=== PATIENT | female | born 1960 | race Caucasian/White ===

== ENCOUNTER → 2016-09-10 | Outpatient (CLI) | payer BC ==
[~2016-09-10] MED LIST: BUPR100T8 PO; CLTP PO; FSM70 PO; GLUCOSAMINE; MOME50SP5; PANT40TA PO; RIZA10TA18 PO; SNG10 PO; SYN125 PO; TOPI100T20 PO
--- NOTE | 2016-09-10 12:48 | MAMMOGRAPHY REPORT ---
BILATERAL DIGITAL SCREENING MAMMOGRAM TOMOSYNTHESIS WITH CAD: 09/10/2016 CLINICAL HISTORY: Routine screening. Patient has no complaints. TECHNIQUE: Breast tomosynthesis in addition to standard 2D mammography was performed. Current study was also evaluated with a Computer Aided Detection (CAD) system. COMPARISON: Comparison is made to exams dated: 08/29/2015 mammogram, 08/23/2014 mammogram, 08/22/2013 ma mmogram, 08/19/2012 mammogram, 08/19/2011 mammogram, and 08/18/2010 mammogram - [facility] nt. BREAST COMPOSITION: The tissue of both breasts is heterogeneously dense, which may obscure small ma sses. FINDINGS: No suspicious masses, calcifications, or areas of architectural distortion are noted in e ither breast. There has been no significant interval change compared to prior exams. IMPRESSION: ACR BI-RADS CATEGORY 1: NEGATIVE There is no mammographic evidence of malignancy. A 1 year screening mammogram is recommended. The p atient will receive written notification of the results. Approximately 10% of breast cancers are not detected with mammography. A negative mammographic repor t should not delay biopsy if a clinically suggestive mass is present. Geovanna Verde M.D. /:09/10/2016 11:09:13 It Security Administrator: Bri Felton, [facility] letter sent: Normal 1/2 BI-RADS Code: ACR BI-RADS Category 1: Negative
== END | disposition home or self-care (01) ==
LOC: C.MAMM 09:55
PROVIDERS: ATTEND Obstetrics & Gynecology
DX: Z12.31 Encounter for screening mammogram for malignant neoplasm of breast (principal)

== ENCOUNTER 2017-05-31 21:22 | Emergency (ER) | payer BC ==
[~2017-05-31] VITALS: Ht 160 cm; Wt 73.1 kg
[2017-05-31 21:24] VITALS: Ht 160 cm; Wt 73.1 kg
[2017-05-31 21:50] VITALS: O2SAT 100
--- NOTE | 2017-05-31 21:50 | EMERGENCY ROOM VISIT NOTE ---
History Report prepared by Carlene: Nguyễn Brown Under the Supervision of: Dr. Blaine Munoz D.O. First contact with patient: 21:30 Chief Complaint: CONFUSION Stated Complaint: CONFUSION, DOUBLE VISION, DISORIENTATION History of Present Illness The patient is a 57 year old female who presents to the Emergency Room with an episode of confusion that occurred prior to arrival tonight. Per the patient's significant other, the patient was watching TV in bed, and mentioned that she was having double vision. The patient then stood up, and lost her balance backward and had some slurred speech, with some decreased fine motor skills. The patient notes that she took Ambien around an hour and a half ago. She adds that she currently feels a bit tired. She denies any headaches, fevers, chills, chest pain, abdominal pain, or recent notable illnesses. She states that she does not drink alcohol. The patient is not on any blood thinners. 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 Denies recent notable illnesses. Review of Systems See HPI for pertinent positives & negatives. A total of 10 systems reviewed and were otherwise negative. Past Medical & Surgical Medical Problems: (1) Gastritis (2) Thyroid disease No chronic problems Family History Cancer Diabetes mellitus Heart disease Hypertension Social History Smoking Status: Never Smoker Smokeless Tobacco Use: No Alcohol Use: none Marital Status: Housing Status: lives with family Occupation Status: employed Current/Historical Medications Scheduled Calcium W/ Vitamin D (Calcium/Vitamin D), 2 TABS PO BID Desloratadine (Clarinex), 5 MG PO DAILY Famotidine (Pepcid), 20 MG PO BID Indomethacin (Indocin), 50 MG PO BID Levothyroxine Sodium (Synthroid), 62.5 MG PO DAILY Mometasone Furoate (Nasal) (Mometasone Furoate), 2 SPRAYS TREE DAILY Montelukast Sodium (Singulair), 10 MG PO HS Verapamil Hcl (Verapamil Hcl Er), 120 MG PO DAILY Zolpidem Tartrate (Zolpidem Tartrate), 10 MG PO HS Scheduled PRN Nxptoryhhs-Rflmfhnmooulr-Jxauk (Esgic 325/50/40MG), 1 CAP PO UD PRN for Migraine Sumatriptan Succinate (Imitrex), 100 MG PO UD PRN for Migraine Allergies Coded Allergies: No Known Allergies (Verified , 05/20/12) Physical Exam Vital Signs Date Time Temp Pulse Resp B/P (MAP) Pulse Ox O2 Delivery O2 Flow Rate FiO2 05/31/17 23:08 36.5 71 16 123/81 100 05/31/17 21:59 67 05/31/17 21:50 100 Room Air 05/31/17 21:41 100 Room Air 05/31/17 21:24 36.5 65 16 127/89 100 Room Air Physical Exam GENERAL: Patient is awake, alert, and in no acute distress. Patient is resting comfortably and showing no signs of anxiety EYES: Bilateral conjunctival injection noted. Pupils were equal round and reactive. EOMI. Horizontal nystagmus in both directions. EARS, NOSE, MOUTH AND THROAT: The nose is without any evidence of any deformity. Mucous membranes are moist tongue is midline NECK: The neck is nontender and supple. RESPIRATORY: Normal respiratory effort is noted there is no evidence of wheezing rhonchi or rales CARDIOVASCULAR: Regular rate and rhythm noted there no murmurs rubs or gallops normal S1 normal S2 GASTROINTESTINAL: The abdomen is soft. Bowel sounds are present in all quadrants. Abdomen is nontender MUSCULOSKELETAL/EXTREMITIES: There is no evidence of gross deformity full range of motion is noted in the hips and shoulders SKIN: There is no obvious evidence of any rash. There are no petechiae, pallor or cyanosis noted. NEUROLOGIC: Patient is awake alert and oriented x3 strength is symmetric patellar reflexes are 2+ bilaterally Medical Decision & Procedures ER Provider Diagnostic Interpretation: Radiology results as stated below per my review and radiologist interpretation: CT SCAN OF THE BRAIN WITHOUT IV CONTRAST CLINICAL HISTORY: Change in mental status. Weakness. COMPARISON STUDY: MRI of the brain dated 05/09/2015. TECHNIQUE: Unenhanced axial CT scan of the brain is performed from the vertex to the skull base. A dose lowering technique was utilized adhering to the principles of ALARA. CT DOSE: 537.48 mGy.cm FINDINGS: Brain parenchyma: The brain parenchyma is normal in appearance. There is no hemorrhage, mass effect, or evidence of acute territorial ischemia by CT criteria. Yost-white matter is preserved. No extra-axial fluid collection is seen. Ventricles, sulci, cisterns: Normal in configuration. Intracranial vasculature: The visualized intracranial vasculature at the skull base is normal in appearance. Calvarium: Unremarkable. Sinuses and mastoids: The visualized paranasal sinuses are clear. The mastoid air cells are well pneumatized. Orbits: The bony orbits are grossly intact. IMPRESSION: There is no hemorrhage, mass effect, or evidence of acute territorial ischemia by CT criteria. Electronically signed by: Carlos Liang M.D. 05/31/2017 10:13 PM Dictated Date/Time: 05/31/2017 10:11 PM SINGLE VIEW CHEST CLINICAL HISTORY: Weakness. Change in mental status. FINDINGS: An AP, portable, upright chest radiograph is compared to study dated 10/09/2009. The heart is top normal for projection. The mediastinal contour is within normal limits. The lungs and pleural spaces are clear. No pneumothorax is seen. The bony thorax is grossly intact. IMPRESSION: No acute cardiopulmonary abnormality. Electronically signed by: Carlos Liang M.D. 05/31/2017 10:16 PM Dictated Date/Time: 05/31/2017 10:15 PM Laboratory Results 05/31/17 21:45 Red Blood Count 4.51, Mean Corpuscular Volume 93.8, Mean Corpuscular Hemoglobin 31.7, Mean Corpuscular Hemoglobin Concent 33.8, Mean Platelet Volume 9.7, Neutrophils (%) (Auto) 44.0, Lymphocytes (%) (Auto) 42.1, Monocytes (%) (Auto) 9.6, Eosinophils (%) (Auto) 3.0, Basophils (%) (Auto) 1.2, Neutrophils # (Auto) 2.93, Lymphocytes # (Auto) 2.81, Monocytes # (Auto) 0.64, Eosinophils # (Auto) 0.20, Basophils # (Auto) 0.08 05/31/17 21:45 Test 05/31/17 21:37 05/31/17 21:45 05/31/17 22:25 Bedside Glucose 83 mg/dl (70-90) White Blood Count 6.67 K/uL (4.8-10.8) Red Blood Count 4.51 M/uL (4.2-5.4) Hemoglobin 14.3 g/dL (12.0-16.0) Hematocrit 42.3 % (37-47) Mean Corpuscular Volume 93.8 fL (80-100) Mean Corpuscular Hemoglobin 31.7 pg (25-34) Mean Corpuscular Hemoglobin Concent 33.8 g/dl (32-36) Platelet Count 197 K/uL (130-400) Mean Platelet Volume 9.7 fL (7.4-10.4) Neutrophils (%) (Auto) 44.0 % Lymphocytes (%) (Auto) 42.1 % Monocytes (%) (Auto) 9.6 % Eosinophils (%) (Auto) 3.0 % Basophils (%) (Auto) 1.2 % Neutrophils # (Auto) 2.93 K/uL (1.4-6.5) Lymphocytes # (Auto) 2.81 K/uL (1.2-3.4) Monocytes # (Auto) 0.64 K/uL (0.11-0.59) Eosinophils # (Auto) 0.20 K/uL (0-0.5) Basophils # (Auto) 0.08 K/uL (0-0.2) RDW Standard Deviation 43.3 fL (36.4-46.3) RDW Coefficient of Variation 12.7 % (11.5-14.5) Immature Granulocyte % (Auto) 0.1 % Immature Granulocyte # (Auto) 0.01 K/uL (0.00-0.02) Prothrombin Time 10.7 SECONDS (9.0-12.0) Prothromb Time International Ratio 1.0 (0.9-1.1) Activated Partial Thromboplast Time 24.5 SECONDS (21.0-31.0) Partial Thromboplastin Ratio 0.9 Anion Gap 6.0 mmol/L (3-11) Est Creatinine Clear Calc Drug Dose 70.0 ml/min Estimated GFR () 86.9 Estimated GFR (Non- 75.0 BUN/Creatinine Ratio 20.2 (10-20) Calcium Level 9.3 mg/dl (8.5-10.1) Magnesium Level 2.3 mg/dl (1.8-2.4) Total Bilirubin 0.3 mg/dl (0.2-1) Direct Bilirubin < 0.1 mg/dl (0-0.2) Aspartate Amino Transf (AST/SGOT) 13 U/L (15-37) Alanine Aminotransferase (ALT/SGPT) 22 U/L (12-78) Alkaline Phosphatase 49 U/L (45-117) Troponin I < 0.015 ng/ml (0-0.045) Total Protein 7.8 gm/dl (6.4-8.2) Albumin 4.3 gm/dl (3.4-5.0) Thyroid Stimulating Hormone (TSH) 1.790 uIu/ml (0.300-4.500) Urine Color YELLOW Urine Appearance CLEAR (CLEAR) Urine pH 5.5 (4.5-7.5) Urine Specific [place] 1.012 (1.000-1.030) Urine Protein NEG (NEG) Urine Glucose (UA) NEG (NEG) Urine Ketones NEG (NEG) Urine Occult Blood TRACE (NEG) Urine Nitrite NEG (NEG) Urine Bilirubin NEG (NEG) Urine Urobilinogen NEG (NEG) Urine Leukocyte Esterase NEG (NEG) Urine WBC (Auto) 0 /hpf (0-5) Urine RBC (Auto) 0-4 /hpf (0-4) Urine Hyaline Casts (Auto) 0 /lpf (0-5) Urine Epithelial Cells (Auto) 0-5 /lpf (0-5) Urine Bacteria (Auto) NEG (NEG) Laboratory results per my review. ECG Indication: altered mental status Rate (beats per minute): 63 Rhythm: normal sinus Findings: no ectopy, other (no acute ST segment abnormalities) Change: no significant change (from 05/11/12) ED Course 2133: The patient was evaluated in room B4B. A complete history and physical examination were performed. Medical Decision Differential diagnosis: Etiologies such as toxicologic, infection, hypoglycemia, electrolyte abnormalities, cardiac sources, intracerebral event, neurologic, as well as others were entertained. Nursing notes reviewed. The patient is a 57-year-old female who presented to the emergency department for an evaluation of altered mental status. The patient took her Ambien and then a half hour later started noticing difficulty with her vision and was unsteady on her feet. Her significant other was concerned and felt that this could be related to a stroke. I discussed the patient's laboratory and radiographic studies with her and her significant other. At this time I feel this is most likely secondary to the medication that she took prior to the onset of the symptoms. They were encouraged to follow-up with primary care physician as soon as possible. They were also encouraged to return to the emergency apartment immediately if symptoms do not improve in the predicted fashion or if need arises. Medication Reconcilliation Current Medication List: was personally reviewed by me Blood Pressure Screening Patient's blood pressure: Normal blood pressure Impression Primary Impression: Altered mental status Additional Impression: Medication reaction Scribe Attestation The scribe's documentation has been prepared under my direction and personally reviewed by me in its entirety. I confirm that the note above accurately reflects all work, treatment, procedures, and medical decision making performed by me. Departure Information Dispostion Home / Self-Care Referrals Letty Vázquez PA-C (PCP) Patient Instructions My [facility] Problem Qualifiers Primary Impression: Altered mental status Altered mental status type: unspecified Qualified Codes: R41.82 - Altered mental status, unspecified Additional Impression: Medication reaction Encounter type: initial encounter Qualified Codes: T88.7XXA - Unspecified adverse effect of drug or medicament, initial encounter
[2017-05-31] MEDS ORDERED: MOME6000 NAE (22:07)
[2017-05-31] MEDS ORDERED: CALC600T24 PO (22:07)
[2017-05-31] MEDS ORDERED: MONT1TAB3 PO (22:07)
[2017-05-31] MEDS ORDERED: LEVO125T72 PO (22:07)
[2017-05-31] MEDS ORDERED: SUMA100T16 PO (22:08)
[2017-05-31] MEDS ORDERED: ZOLP10TA6 PO (22:08)
[2017-05-31] MEDS ORDERED: FAMO20TA11 PO (22:08)
[2017-05-31] MEDS ORDERED: CLR/5 PO (22:08)
[2017-05-31] MEDS ORDERED: BUTACAP10 PO (22:08)
[2017-05-31] MEDS ORDERED: VERA120C2 PO (22:08)
[2017-05-31] MEDS ORDERED: INDO-24 PO (22:08)
--- NOTE | 2017-05-31 22:14 | DIAGNOSTIC IMAGING REPORT ---
CT SCAN OF THE BRAIN WITHOUT IV CONTRAST CLINICAL HISTORY: Change in mental status. Weakness. COMPARISON STUDY: MRI of the brain dated 05/09/2015. TECHNIQUE: Unenhanced axial CT scan of the brain is performed from the vertex to the skull base. A dose lowering technique was utilized adhering to the principles of ALARA. CT DOSE: 537.48 mGy.cm FINDINGS: Brain parenchyma: The brain parenchyma is normal in appearance. There is no hemorrhage, mass effect, or evidence of acute territorial ischemia by CT criteria. Yost-white matter is preserved. No extra-axial fluid collection is seen. Ventricles, sulci, cisterns: Normal in configuration. Intracranial vasculature: The visualized intracranial vasculature at the skull base is normal in appearance. Calvarium: Unremarkable. Sinuses and mastoids: The visualized paranasal sinuses are clear. The mastoid air cells are well pneumatized. Orbits: The bony orbits are grossly intact. IMPRESSION: There is no hemorrhage, mass effect, or evidence of acute territorial ischemia by CT criteria. Electronically signed by: Carlos Liang M.D. 05/31/2017 10:13 PM Dictated Date/Time: 05/31/2017 10:11 PM
[2017-05-31 22:17] LABS: BASO % 1.2 %; BASO ABS # 0.08 K/uL (0-0.2); COMPLETE YES; HEMATOCRIT 42.3 % (37-47); IG% 0.1 %; LYMPH % 42.1 %; LYMPH ABS # 2.81 K/uL (1.2-3.4); MEAN CELL VOLUME 93.8 fL (80-100); MEAN CORPUSCULAR HEMOGLOBIN 31.7 pg (25-34); MEAN CORPUSCULAR HGB CONC 33.8 g/dl (32-36); MEAN PLATELET VOLUME 9.7 fL (7.4-10.4); MONO % 9.6 %; PLATELET COUNT 197 K/uL (130-400); RED BLOOD COUNT 4.51 M/uL (4.2-5.4); WHITE BLOOD COUNT 6.67 K/uL (4.8-10.8)
--- NOTE | 2017-05-31 22:17 | DIAGNOSTIC IMAGING REPORT ---
SINGLE VIEW CHEST CLINICAL HISTORY: Weakness. Change in mental status. FINDINGS: An AP, portable, upright chest radiograph is compared to study dated 10/09/2009. The heart is top normal for projection. The mediastinal contour is within normal limits. The lungs and pleural spaces are clear. No pneumothorax is seen. The bony thorax is grossly intact. IMPRESSION: No acute cardiopulmonary abnormality. Electronically signed by: Carlos Liang M.D. 05/31/2017 10:16 PM Dictated Date/Time: 05/31/2017 10:15 PM
[2017-05-31 22:21] LABS: PARTIAL THROMBOPLASTIN RATIO 0.9; PROTHROMBIN TIME (PATIENT) 10.7 SECONDS (9.0-12.0)
[2017-05-31 22:23] LABS: ALT/SGPT 22 U/L (12-78); BLOOD UREA NITROGEN 18 mg/dl (7-18); BUN/CREATININE RATIO 20.2 (10-20); CALCIUM 9.3 mg/dl (8.5-10.1); CARBON DIOXIDE 28 mmol/L (21-32); CHLORIDE 103 mmol/L (98-107); CREATININE 0.87 mg/dl (0.60-1.20); GLUCOSE 91 mg/dl (70-99); MAGNESIUM 2.3 mg/dl (1.8-2.4); POTASSIUM 3.7 mmol/L (3.5-5.1); SODIUM 137 mmol/L (136-145)
[2017-05-31 22:34] LABS: ALKALINE PHOSPHATASE 49 U/L (45-117); AST/SGOT 13 U/L (15-37)
[2017-05-31 22:38] LABS: URINE APPEARANCE CLEAR (CLEAR); URINE BILIRUBIN NEG (NEG); URINE COLOR YELLOW; URINE EPITHELIAL CELL AUTO 0-5 /lpf (0-5); URINE NITRITE NEG (NEG); URINE PH 5.5 (4.5-7.5); URINE SPECIFIC GRAVITY 1.012 (1.000-1.030); UROBILINOGEN NEG (NEG)
[2017-05-31 22:41] LABS: MANUAL MICROSCOPIC REQUIRED? NO; REVIEW REQ? NO
[2017-05-31 23:08] VITALS: BP 123/81; PULSE 71; TEMP 36.5; O2SAT 100
== END 2017-05-31 23:08 | disposition home or self-care (01) ==
LOC: C.EDB 21:23
DX: R41.82 Altered mental status, unspecified (principal); E07.9 Disorder of thyroid, unspecified; Z87.19 Personal history of other diseases of the digestive system; Z79.899 Other long term (current) drug therapy; Z80.9 Family history of malignant neoplasm, unspecified; Z83.3 Family history of diabetes mellitus; Z82.49 Family history of ischemic heart disease and other diseases of the circulatory system

== ENCOUNTER → 2017-08-10 | Outpatient (CLI) | payer BC ==
[~2017-08-10] MED LIST changes: -BUPR100T8 PO; +BUTACAP10 PO; +CALC600T24 PO; +CLR/5 PO; -CLTP PO; +FAMO20TA11 PO; -FSM70 PO; -GLUCOSAMINE; +INDO-24 PO; +LEVO125T72 PO; -MOME50SP5; +MOME6000 NAE; +MONT1TAB3 PO; -PANT40TA PO; -RIZA10TA18 PO; -SNG10 PO; +SUMA100T16 PO; -SYN125 PO; -TOPI100T20 PO; +VERA120C2 PO; +ZOLP10TA6 PO
--- NOTE | 2017-08-10 14:58 | DIAGNOSTIC IMAGING REPORT ---
AP PELVIS ONE VIEW, RIGHT HIP 2 VIEWS CLINICAL HISTORY: RIGHT HIP PAIN COMPARISON STUDY: None. FINDINGS: No fracture or dislocation within the pelvis or hips. Cartilage spaces are maintained for age. Soft tissues are unremarkable. Incidental note is made of a posterior fusion defect at L5. 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 IMPRESSION: No fracture or dislocation within the pelvis or hips. Electronically signed by: Omar Parish M.D. 08/10/2017 2:57 PM Dictated Date/Time: 08/10/2017 2:55 PM
== END | disposition home or self-care (01) ==
LOC: C.RDSM 08:00
PROVIDERS: ATTEND Family Medicine
DX: M25.551 Pain in right hip (principal)

== ENCOUNTER → 2017-09-16 | Outpatient (CLI) | payer BC ==
--- NOTE | 2017-09-17 07:20 | MAMMOGRAPHY REPORT ---
BILATERAL DIGITAL SCREENING MAMMOGRAM TOMOSYNTHESIS WITH CAD: 09/16/2017 CLINICAL HISTORY: Routine screening. Patient has no complaints. TECHNIQUE: Breast tomosynthesis in addition to standard 2D mammography was performed. Current study was also evaluated with a Computer Aided Detection (CAD) system. COMPARISON: Comparison is made to exams dated: 09/10/2016 mammogram, 08/29/2015 mammogram, 08/23/2014 ma mmogram, 08/22/2013 mammogram, 08/19/2012 mammogram, and 08/19/2011 mammogram - [facility]. BREAST COMPOSITION: The tissue of both breasts is heterogeneously dense, which may obscure small mas ses. FINDINGS: No suspicious masses, calcifications, or areas of architectural distortion are noted in ei ther breast. There has been no significant interval change compared to prior exams. IMPRESSION: ACR BI-RADS CATEGORY 1: NEGATIVE There is no mammographic evidence of malignancy. A 1 year screening mammogram is recommended. The pa tient will receive written notification of the results. Approximately 10% of breast cancers are not detected with mammography. A negative mammographic report should not delay biopsy if a clinically suggestive mass is present. Geovanna Verde M.D. ah/:09/16/2017 13:51:00 Valet Cashier: Bertha Awad RT(Abhinav)(Jak)([place]), [facility] letter sent: Normal 1/2 BI-RADS Code: ACR BI-RADS Category 1: Negative
== END | disposition home or self-care (01) ==
LOC: C.MAMM 09:54
PROVIDERS: ATTEND Obstetrics & Gynecology
DX: Z12.31 Encounter for screening mammogram for malignant neoplasm of breast (principal)